=== PATIENT | male | born 2000 | race Caucasian/White ===

== ENCOUNTER 2022-07-06 00:08 | Emergency (ER) | payer BC ==
[~2022-07-06] VITALS: Ht 172.7 cm; Wt 82.0 kg
[2022-07-06] MEDS ORDERED: ONDANSETRON HCL 4MG/2ML INJ IV STA (00:25)
[2022-07-06] MEDS ORDERED: SODIUM CHLORIDE 0.9% 1,000 ML IV ONE (00:30)
[2022-07-06 00:52] LABS: BASOPHILS % 0.4 % (0.0-2.0); EOSINOPHILS % 2.8 % (0.0-5.0); HEMATOCRIT. 44.5 % (42.0-52.0); HEMOGLOBIN. 14.8 g/dL (14.0-18.0); MEAN CORPUSCULAR HEMOGLOBIN 28.6 pg (28.0-32.0); MEAN PLATELET VOLUME 7.3 fl (7.4-10.4); MONOCYTES % 7.6 % (2.0-8.0); NEUTROPHILS % 59.2 % (40.0-76.0); PLATELET 318 x1000/uL (130-400); RED BLOOD CELL COUNT 5.17 mill/uL (4.7-6.1); RED CELL DISTRIBUTION WIDTH 13.7 % (11.6-14.6)
[2022-07-06 00:55] LABS: BG BASE EXCESS -7.6 mmol/L (-2.0-2.0); BG CARBOXYHEMOGLOBIN 0.2 % (0.5-1.5); BG DEOXYHEMOGLOBIN 9.6 % (0.0-5.0); BG METHEMOGLOBIN 0.3 % (0.0-1.5); BG OXYGEN SATURATION 90.4 % (92.0-98.5); BG OXYHEMOGLOBIN 89.9 % (94.0-97.0); BG PCO2 42.5 mmHg (35.0-45.0); BG PH 7.269 (7.350-7.450); BG PO2 70.2 mmHg (75.0-100.0); BG SAMPLE SITE LEFT RADIAL; BG TOTAL HEMOGLOBIN 15.5 g/dL (12.0-18.0); BG VENT MODE ROOM AIR
[2022-07-06 01:23] LABS: CHLORIDE 115 mEq/L (98-107)
[2022-07-06 01:30] LABS: ETHANOL BLOOD 284 mg/dL
[2022-07-06 01:47] LABS: *AMPHETAMINES SCREEN URINE NEGATIVE (NEGATIVE); *BARBITURATES SCREEN URINE NEGATIVE (NEGATIVE); *BENZODIAZEPINES SCREEN URINE NEGATIVE (NEGATIVE); *COCAINE SCREEN URINE NEGATIVE (NEGATIVE); CANNABINOID URINE SCREEN NEGATIVE (NEGATIVE); METHADONE URINE SCREEN NEGATIVE (NEGATIVE); OPIATES URINE SCREEN NEGATIVE (NEGATIVE); PHENCYCLIDINE URINE SCREEN NEGATIVE (NEGATIVE)
[2022-07-06 09:36] LABS: BG BASE EXCESS -0.8 mmol/L (-2.0-2.0); BG DEOXYHEMOGLOBIN 2.8 % (0.0-5.0); BG FRACTION INSPIRED OXYGEN 21; BG HCO3 ACT 24.4 mmol/L (22.0-26.0); BG METHEMOGLOBIN 0.3 % (0.0-1.5); BG OXYGEN SATURATION 97.2 % (92.0-98.5); BG OXYHEMOGLOBIN 95.9 % (94.0-97.0); BG PCO2 42.2 mmHg (35.0-45.0); BG PO2 93.9 mmHg (75.0-100.0); BG SAMPLE SITE RIGHT RADIAL; BG TOTAL HEMOGLOBIN 15.2 g/dL (12.0-18.0); BG VENT MODE ROOM AIR
[2022-07-06] MEDS ORDERED: POTASSIUM CHLORIDE 20MEQ TABLET SR PO NR (11:45)
[2022-07-06 13:42] VITALS: BP 104/65
== END 2022-07-06 13:47 | disposition home or self-care (01) ==
LOC: EDBD 00:08 → ER 00:08 → EDBEDREQSVC 03:49 → EDBEDREQTM 03:49 → EDBEDREQ 03:49 → CANBEDREQ 13:29 → ER 13:47
DX: T51.0X1A Toxic effect of ethanol, accidental (unintentional), initial encounter (principal); G92.8 Other toxic encephalopathy; E87.20 Acidosis, unspecified; R09.02 Hypoxemia; E87.6 Hypokalemia; Y90.8 Blood alcohol level of 240 mg/100 ml or more; Y92.488 Other paved roadways as the place of occurrence of the external cause
CPT/HCPCS: 36415; 36600; 70450; 71045; 80053; 80305; 80320; 82140; 82375; 82805; 83605; 85025; 96361; 96374; 99291; J2405; J7030; Z7610; G0480